=== PATIENT | female | born 1985 | race Two or more races ===

== ENCOUNTER 2021-04-23 13:30 | Inpatient (IN) | payer OTHER ==
[~2021-04-23] VITALS: Ht 157.5 cm; Wt 3.6 kg
[2021-05-14] MEDS ORDERED: PRENATAL TABLE1 EAC1 PO (09:24)
[2021-05-14] MEDS ORDERED: VALTREX1000 MG PO (09:24)
[2021-05-14] MEDS ORDERED: LIPO-FLAVONOID1 EACH PO (09:26)
[2021-05-14] MEDS ORDERED: MAGNESIUM200 MG PO (09:26)
[2021-05-15] MEDS ORDERED: INTEGRA PLUS C1 EACH (08:15)
[2021-05-15] MEDS ORDERED: INTEGRA F CAPS1 EAC1 (08:15)
[2021-05-15] MEDS ORDERED: METRONIDAZOLE45 G1 (08:15)
[2021-05-15] MEDS ORDERED: SOD SULFACET170.3 GM (08:16)
== END 2021-05-18 13:20 | disposition home or self-care (01) | DRG 788 ==
LOC: LDR 05-02 13:30 → OB/GYN 05-15 19:48
PROVIDERS: ADMIT Obstetrics & Gynecology Maternal & Fetal Medicine; ATTEND Obstetrics & Gynecology Maternal & Fetal Medicine
PROC: 4A1HXFZ Monitoring of Products of Conception, Cardiac Rhythm, External Approach (ICD-10-PCS; 2021-05-15)
PROC: 10D00Z1 Extraction of Products of Conception, Low, Open Approach (ICD-10-PCS; principal; 2021-05-15 17:00)
DX: O48.0 Post-term pregnancy (principal); O65.9 Obstructed labor due to maternal pelvic abnormality, unspecified; Z3A.41 41 weeks gestation of pregnancy; Z37.0 Single live birth